=== PATIENT | male | born 2000 | race Caucasian/White ===

== ENCOUNTER 2020-01-05 19:18 | Emergency (ER) | payer OTHER ==
[~2020-01-05] VITALS: Ht 172.7 cm; Wt 90.7 kg
[2020-01-05] MEDS ORDERED: LEVFLO500 PO (20:18)
== END 2020-01-05 20:36 | disposition home or self-care (01) ==
LOC: ER 19:18
DX: S91.342A Puncture wound with foreign body, left foot, initial encounter (principal); Z23 Encounter for immunization; W22.8XXA Striking against or struck by other objects, initial encounter
CPT/HCPCS: 73620; 90471; 90714; 99283-25

== ENCOUNTER → 2020-08-08 | Outpatient (CLI) | payer OTHER ==
[~2020-08-08] MED LIST: LEVFLO500 PO
== END | disposition home or self-care (01) ==
LOC: LAB 09:30 → LAB SHORT 09:30
DX: R10.9 Unspecified abdominal pain (principal)
CPT/HCPCS: 87338